=== PATIENT | female | born 1955 | race Hispanic/Latino ===

== ENCOUNTER 2017-03-21 22:34 | Observation (INO) | payer BC ==
--- NOTE | 2017-03-21 23:01 | RAD ---
EXAM: ONE VIEW CHEST 03/21/17 HISTORY: Chest pain. COMPARISON: None. FINDINGS: Portable upright chest: Normal cardiac silhouette. Fullness in the right paratracheal region and right suprahilar region. Cos tophrenic angles are clear. No consolidation. No pleural effusion or pneumothorax. IMPRESSION: Fullness in the right paratracheal and right suprahilar region which may in part be due to patient ro tation. Two view chest radiograph is recommended. POS: [facility]
[2017-03-21 23:02] LABS: #Basophils 0.1 thou/uL (0.0-0.2); #Eosinphils 0.3 thou/uL (0.0-0.7); #Lymphocytes 3.4 thou/uL (1.20-3.40); #Monocytes 0.7 thou/uL (0.11-0.59); %Basophils 0.9 % (0.0-1.0); %Eosinophils 2.7 % (0.0-10.0); %Lymphocytes 35.8 % (21.0-51.0); %Monocytes 7.5 % (0.0-10.0); Hemoglobin 14.3 g/dL (12.0-16.0); Mean Corpuscular HGB CONC 33.1 g/dL (32.0-36.0); Mean Corpuscular Hemoglobin 30.4 pg (27.0-31.0); Mean Corpuscular Volume 91.9 fl (81.0-99.0); Mean Platelet Volume 6.3 fL (7.4-10.4); Platelet Count 308 thou/uL (130-400); RBC Distribution Width 12.2 % (11.5-14.5); White Blood Cell (WBC) Count 9.5 thou/uL (4.8-10.8)
[2017-03-21 23:08] LABS: Prothrombin Time 13.1 SEC (12.0-14.7)
[2017-03-21 23:09] LABS: PTT 29.6 SEC (22.9-36.1)
[2017-03-21 23:23] LABS: ALT (SGPT) 21 U/L (8-55); AST (SGOT) 22 U/L (5-34); Albumin 5.2 g/dL (3.5-5.0); Alkaline Phosphatase 71 U/L (40-150); Anion Gap 15 mmol/L (10-20); BUN (Urea Nitrogen) 15 mg/dL (9.8-20.1); Bilirubin, Total 0.4 mg/dL (0.2-1.2); Calc. Creatinine Clearance 0 mL/min (70-130); Calcium 10.1 mg/dL (7.8-10.44); Carbon Dioxide 27 mmol/L (22-29); Chloride 102 mmol/L (98-107); Estimated GFR-MDRD 70; Globulin 3.2 g/dL (2.4-3.5); Glucose 85 mg/dL (70-105); Potassium 3.5 mmol/L (3.5-5.1); Protein, Total 8.4 g/dL (6.0-8.3); Sodium 140 mmol/L (136-145)
[2017-03-21 23:26] LABS: CKMB 4.1 ng/mL (0-6.6); Troponin I Less than 0.010 ng/mL (< 0.028)
[2017-03-22] MEDS ORDERED: Nitroglycerin 2% Ointment 1 INCH/1 GM Packet ONE ×2 (00:03→00:05)
[2017-03-22] MEDS ORDERED: Fentanyl 100 MCG/2 ML VIAL ONE (00:03)
--- NOTE | 2017-03-22 00:23 | RAD ---
ONE VIEW CHEST 03/21/17 HISTORY: Abnormal right sided cardiomediastinal. FINDINGS/IMPRESSION: On the lateral projection, there may be some fullness in the right suprahilar region. Better interrog ation with a chest CT is recommended. POS: [facility]
[2017-03-22] MEDS ORDERED: Ondansetron HCl/PF 4 MG/2 ML Vial ONE (00:45)
[2017-03-22 02:40] LABS: Troponin I Less than 0.010 ng/mL (< 0.028)
[2017-03-22 03:04] VITALS: BMI 23.9
[2017-03-22 05:53] LABS: Troponin I Less than 0.010 ng/mL (< 0.028)
--- NOTE | 2017-03-22 07:47 | CT ---
PRELIMINARY REPORT/[facility]/EMERGENCY AFTER HOURS PROCEDURE: EXAM: CT Angiography Chest With Intravenous Contrast CLINICAL HISTORY: 61 years old, female; Pain; Chest pain; Patient HX: F61 presents to ed C/O cp onset at rest. Pt denie s cardiac HX, states she had a mini stroke a few years ago. Pt had a stress test then with good repor t. Pt takes 81 mg asa daily. Denies recent strenuous activity, denies edema, denies diaphoresis, abel es abd pain, denies n/v. TECHNIQUE: Axial computed tomographic angiography images of the chest with intravenous contrast using pulmonary embolism protocol. MIP reconstructed images were created and reviewed. Oblique reformatted images were created and reviewed. COMPARISON: No relevant prior studies available. FINDINGS: Pulmonary arteries: No pulmonary embolism. Aorta: Unremarkable. Lungs: A 4 mm right upper lung nodule image 55 series 2. Minimal bibasilar dependent atelectasis. Pleural space: No significant effusion. No pneumothorax. Heart: Unremarkable. Mediastinum: Small hiatal hernia. Bones/joints: No acute fracture. No dislocation. Soft tissues: Unremarkable. Lymph nodes: No enlarged lymph nodes. Liver: Multiple hypodensities in the liver of varying sizes, the largest measuring approximately 2.1 x 1.9 cm. IMPRESSION: 1. No acute findings. 2. Multiple hypodensities in the liver of varying sizes and a 4 mm right upper lung nodule. Follow-up or further evaluation for these findings at local radiologist's discretion. Thank you for allowing us to participate in the care of your patient. Dictated and Authenticated by: Miguel Spring MD 03/22/2017 1:42 AM Central Time ([place] & [place]) FINAL REPORT CT ANGIO CHEST WITH CONTRAST: Date: 03/22/17 HISTORY: Chest pain, chest radiograph abnormality. COMPARISON: Chest radiograph from prior day. TECHNIQUE: CT angiogram of chest performed after the intravenous administration of contrast. 3D rendering is pro vided. FINDINGS: Aortic size is normal. No proximal segmental pulmonary arterial filling defect. 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 Multiple cysts of the liver. No consolidations or effusion. IMPRESSION: 1. Corresponding to the radiographic findings is a dilated azygos vein, which can be seen with seque lae of azygos continuation of the IVC. 2. 4.0 mm right upper lobe nodule. In a high risk patient, optional CT of chest in 12 months is vini mmended. POS: [facility]
[2017-03-22] MEDS ORDERED: Nitroglycerin 0.4 MG TAB (25 Tab Bottle) PO PRN (08:02)
[2017-03-22] MEDS ORDERED: Non-Formulary Item 1 EACH (Amlodipine Besylate [Amlodipine Besylate] 2.5 MG) PO SCH (09:00)
[2017-03-22] MEDS ORDERED: Non-Formulary Item 1 EACH (Ferrous Sulfate [Iron] 325 MG) PO SCH (09:00)
[2017-03-22] MEDS ORDERED: ISOVUE-370 76%-LOCM 1 ML ONE (14:26)
[2017-03-22] MEDS: Ferrous Sulfate 325 MG TAB PO SCH ×2 (16:42→21:24)
[2017-03-22] MEDS: Amlodipine 5 MG TAB PO SCH (16:42)
[2017-03-22] MEDS: Aspirin 81 mg Enteric Coated Tablet PO SCH (16:42)
[2017-03-22] MEDS: Lisinopril 5 MG TAB PO SCH (16:43)
--- NOTE | 2017-03-22 17:42 | CON ---
DATE OF ADMISSION: 03/22/2017 DATE OF CONSULTATION 03/22/2017 INDICATION FOR CONSULTATION: A 61-year-old female with chest pain. HISTORY OF PRESENT ILLNESS: This is a very pleasant 61-year-old female having complaints of substern al, dull chest discomfort which started around 9:30 last night. She has also occasionally been tight . She also complains of shortness of breath. She has undergone stress testing about 3-4 years ago a nd was found to have no evidence of underlying ischemia. She apparently says she also had mini strok e in the past. She had an EKG which showed normal sinus rhythm with T-wave inversions in V1 through V3. Also, she has these nonspecific changes. She also had Q-wave in lead 3; however, this is indete rminate for a myocardial infarction with small Q-wave in AVF. Her enzymes are unremarkable. They ar e negative. She still has some pain which she says comes and goes, but I do not see any EKG changes associated with that. She did have a CT scan earlier to rule out probably pulmonary emboli and was f ound to have a 4.0 mm nodule in the chest area, which was questionable for possible mass; it is a 4.0 mm right upper lobe nodule. A repeat CT scan was recommended in 12 months. Otherwise, there were n o significant abnormalities noted that would indicate any cardiac abnormalities. She was seen in the past for chest discomfort also by Dr. Barr and stress testing performed, but that was unremarkable . This was back in, I believe, 2014. PAST MEDICAL HISTORY: Significant for left femur fracture. She has had what she says small CVAs in the past. Many stroke. She had a cholecystectomy, hysterectomy, left femur fracture. She has compl ained of anxiety. SOCIAL HISTORY: She is . She has 1 child with no heart disease. She has no alcohol or toba insurance account specialist abuse. 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 FAMILY HISTORY: Unremarkable for any early heart disease. ALLERGIES: She is allergic to CODEINE and TRAMADOL. MEDICATIONS: Prior to admission, consisted of Claritin, vitamins, lisinopril, aspirin, iron tablets, vitamin C and Norvasc. In the emergency room, she was given nitroglycerin and fentanyl. REVIEW OF SYSTEMS: Twelve point review of systems unremarkable. As noted in history of present illn ess, she also wears glasses. PHYSICAL EXAMINATION: GENERAL: Reveals a well-developed, well-nourished female. VITAL SIGNS: Blood pressure 123/65, heart rate 60s and regular, respiratory rate is 16. HEENT: Reveals the head to be normocephalic, atraumatic. Carotid pulses are present. No bruits, no JVD. Thyroid is not enlarged. Oral mucosa is pink and moist. CHEST: Clear to auscultation, no rales, rhonchi or wheezing noted. CARDIOVASCULAR: Exam reveals a regular rate and rhythm. She has normal S1, S2. There was no S3, S4 . There were no significant murmurs, heaves, thrills, bruits or rubs noted. ABDOMEN: Soft and nontender with positive bowel sounds. No organomegaly or masses were noted. Femo ral pulses are present. Pedal pulses are present. There is no evidence of lower extremity edema. NEUROLOGIC: She appears to be fully intact with normal strength and normal tone. SKIN: Warm and dry. LABORATORY DATA: EKG shows normal sinus rhythm with nonspecific ST segment changes noted above with Q-wave in lead 3 and a small Q wave in lead AVF, which has not necessarily indicated myocardial infar ction. There was no evidence of this on previous EKGs; however, there was no evidence of myocardial infarction on previous EKGs, but there was mentioned previously of ST segment changes similar to what she has at this time, but they did not mention whether or not she had a Q-wave or not and I do not h ave old EKGs available. IMPRESSION: 1. Chest pain. Given her age and repeated episodes of chest discomfort at this time, I would sugges t she undergo repeat stress testing. If this is unremarkable, then the patient can be discharged skylar e after this, the second portion of the stress test is done. 2. History of small nodules, this need to be followed up as an outpatient. 3. Hypertension, which is under good control at this time. 4. Hypercholesterolemia. She should be placed on statin medications if she is able to afford or she will take these medications. She was not taking any cholesterol lowering medications previously. T here was no cholesterol performed on this admission. We will be more than happy to follow her with y ou, but we will plan for stress testing tomorrow. If this is abnormal, then she may need to undergo cardiac catheterization.
--- NOTE | 2017-03-22 21:13 | HP ---
PRIMARY CARE PHYSICIAN: Pardeep Arredondo M.D. CHIEF COMPLAINT: Chest pain. HISTORY OF PRESENT ILLNESS: A 61-year-old female with a past medical history of hypertension and hyp erlipidemia, who presented to the emergency room after she developed intermittent chest pain last nig ht while watching television. She describes it as substernal pressure, did not radiate and associate d with shortness of breath. It is not associated with nausea or vomiting. She reports she had a str ess test done about 4 years ago, which was negative. She denies cough, lower extremity edema, diapho resis, abdominal pain. She has no urinary symptoms. On presentation at the emergency room, vital si gns were stable. EKG showed no signs of acute ischemia. Chest x-ray was largely unrevealing and so she had a CT angio to rule out pulmonary embolism. CT showed a pulmonary nodule with recommendation to follow up with repeat imaging in 12 months. PAST MEDICAL HISTORY: Hypertension, hyperlipidemia. PAST SURGICAL HISTORY: Hysterectomy, cholecystectomy, left hip surgery. ALLERGIES: None. FAMILY AND SOCIAL HISTORY: Denies smoking cigarettes, drinking alcohol or using illicit drugs. REVIEW OF SYSTEMS: Constitutional: Denies fevers or chills. HEENT: Denies headaches, congestion. Cardiovascular: Per HPI. Respiratory: Positive for shortness of breath. Denies cough, sputum pro duction. GI: Negative. Musculoskeletal: Negative. Skin: Denies rashes or lesions. Neurologic: Denies dizziness, loss of consciousness. Endocrine: Negative. Hematology: Denies easy bruising o r bleeding disorder. Psychiatric: Denies suicidal or homicidal ideations, depressed mood. All othe r systems reviewed and were negative. PHYSICAL EXAMINATION: CONSTITUTIONAL: Vital signs reviewed and stable. GENERAL: Not in acute distress. HEENT: Normocephalic, atraumatic. PERRLA, EOMI. NECK: Supple. Anicteric. Mucous membranes are moist. RESPIRATORY: Vesicular to auscultation bilaterally. No wheezes or rales. CHEST: Nontender. CARDIOVASCULAR: S1, S2 only. No murmurs, rubs or gallops. ABDOMEN: Bowel sounds positive, nontender, nondistended, no organomegaly. MUSCULOSKELETAL: Moves all extremities spontaneously. NEUROLOGIC: Alert and well oriented. No focal deficits. SKIN: No rash or lesions appreciated. LABORATORY DATA: Troponin trended and remained negative. Chest x-ray and a CTA chest, as well as EK G as above. ASSESSMENT AND PLAN: 1. Chest pain, currently chest pain free. A major concern was from possible acute coronary syndrome , but the patient has no family history and workup has been negative. We will admit to tele, give barnhart blingual nitroglycerin p.r.n. for pain as well as IV morphine, daily aspirin. Cardiology to review. 2. Hyperlipidemia. We will continue on home regimen. CODE STATUS: FULL RESUSCITATION.
[2017-03-22] MEDS ORDERED: Atorvastatin Calcium 20 MG TAB PO SCH (21:15)
[2017-03-23 05:00] LABS: #Eosinphils 0.2 thou/uL (0.0-0.7); #Lymphocytes 2.6 thou/uL (1.20-3.40); #Monocytes 0.5 thou/uL (0.11-0.59); %Basophils 0.8 % (0.0-1.0); %Eosinophils 3.5 % (0.0-10.0); %Lymphocytes 40.8 % (21.0-51.0); Hemoglobin 13.1 g/dL (12.0-16.0); Mean Corpuscular HGB CONC 34.2 g/dL (32.0-36.0); Mean Corpuscular Hemoglobin 31.6 pg (27.0-31.0); Mean Corpuscular Volume 92.6 fl (81.0-99.0); Mean Platelet Volume 6.3 fL (7.4-10.4); Platelet Count 261 thou/uL (130-400); RBC Distribution Width 12.2 % (11.5-14.5); Red Blood Cell (RBC) Count 4.14 mill/uL (4.20-5.40); White Blood Cell (WBC) Count 6.3 thou/uL (4.8-10.8)
[2017-03-23 05:24] LABS: Anion Gap 12 mmol/L (10-20); BUN (Urea Nitrogen) 18 mg/dL (9.8-20.1); Calc. Creatinine Clearance 71 mL/min (70-130); Calcium 9.1 mg/dL (7.8-10.44); Carbon Dioxide 27 mmol/L (22-29); Chloride 104 mmol/L (98-107); Estimated GFR-MDRD 78; Glucose 94 mg/dL (70-105); Potassium 3.7 mmol/L (3.5-5.1); Sodium 139 mmol/L (136-145)
[2017-03-23] MEDS: Amlodipine 5 MG TAB PO SCH ×2 (07:57→13:36)
[2017-03-23] MEDS: Ferrous Sulfate 325 MG TAB PO SCH ×2 (07:57→21:09)
[2017-03-23] MEDS: Lisinopril 5 MG TAB PO SCH ×2 (07:57→13:35)
[2017-03-23] MEDS: Aspirin 81 mg Enteric Coated Tablet PO SCH ×2 (07:57→13:37)
[2017-03-23 09:23] LABS: Cardiac Risk 2.6 (Less than 4.5)
[2017-03-23] MEDS ORDERED: ADENOSINE 60 MG/20 ML VIAL ONE (12:01)
--- NOTE | 2017-03-23 12:28 | NM ---
NUCLEAR MEDICINE CARDIAC STRESS TEST WITH EJECTION FRACTION: HISTORY: Chest pain. Dyslipidemia. COMPARISON: Stress test from 2014. TECHNIQUE: Stress and rest was performed after the intravenous administration of 33 and 27 mCi technetium-99m se stamibi. FINDINGS: There is no scar. There is low grade ischemic change of the anterior wall lateral ventricle from the mid portion to the apex. Normal wall motion. Normal ejection fraction. Ejection fraction calculated a t 81%. IMPRESSION: Low grade ischemia anterior wall lateral ventricle extending from the mid portion to the apex. POS: [facility]
--- NOTE | 2017-03-23 12:58 | PDOC.PN ---
- Subjective Encounter Start Date: 03/23/17 Encounter Start Time: 12:55 -: No new compplaints -: No acute events overnight/ - Objective MAR Reviewed: Yes Vital Signs & Weight: Vital Signs (12 hours) Temp Pulse Resp BP Pulse Ox 03/23/17 12:00 97.4 F L 62 18 127/70 98 03/23/17 08:00 98.1 F 55 L 16 118/56 L 95 03/23/17 07:57 58 L 03/23/17 04:00 97.6 F 58 L 16 118/57 L 96 I&O: 03/22/17 03/23/17 03/24/17 06:59 06:59 06:59 Intake Total 590 Balance 590 Result Diagrams: 03/23/17 04:33 03/23/17 04:33 Radiology Reviewed by me: Yes Phys Exam - Physical Examination Constitutional: NAD HEENT: PERRLA, moist MMs, sclera anicteric Neck: supple, full ROM Respiratory: no wheezing, no rales, no rhonchi, clear to auscultation bilateral Cardiovascular: RRR, no significant murmur, no rub Gastrointestinal: soft, non-tender, no distention, positive bowel sounds Musculoskeletal: no edema, pulses present Neurological: non-focal, moves all 4 limbs Psychiatric: normal affect, A&O x 3 Skin: no rash, normal turgor Dx/Plan (1) Chest pain, rule out acute myocardial infarction Code(s): R07.9 - CHEST PAIN, UNSPECIFIED Status: Acute Comment: Stress test revealed ischemic wall change in the anterior wall lateral ventricle. Remains chest pain free Continue ASA and Statins F/u with cardiology re LHC (2) HTN (hypertension) Code(s): I10 - ESSENTIAL (PRIMARY) HYPERTENSION Status: Acute Qualifiers: Hypertension type: essential hypertension Qualified Code(s): I10 - Essential (primary) hypertension Comment: Continue home regimen. Fair control. (3) HLD (hyperlipidemia) Code(s): E78.5 - HYPERLIPIDEMIA, UNSPECIFIED Status: Acute Qualifiers: Hyperlipidemia type: pure hypercholesterolemia Qualified Code(s): E78.00 - Pure hypercholesterolemia, unspecified; E78.0 - Pure hypercholesterolemia Comment: Lipid profile done Continue Statins - Plan cont current plan of care f/u with cardiology. Possibly will need a LHC * .
[2017-03-23] MEDS ORDERED: Communication Order-Pharmacy FS SCH (17:30)
[2017-03-23] MEDS ORDERED: Atorvastatin Calcium 20 MG TAB PO SCH (21:00)
[2017-03-23] MEDS ORDERED: diphenhydrAMINE 25 MG CAP PO PRN (23:05)
[2017-03-24] MEDS: Lisinopril 5 MG TAB PO SCH (03:46)
[2017-03-24] MEDS: Ferrous Sulfate 325 MG TAB PO SCH (03:47)
[2017-03-24] MEDS: Amlodipine 5 MG TAB PO SCH (03:47)
[2017-03-24] MEDS: Aspirin 81 mg Enteric Coated Tablet PO SCH (03:47)
[2017-03-24 05:15] LABS: #Basophils 0.1 thou/uL (0.0-0.2); #Eosinphils 0.3 thou/uL (0.0-0.7); #Lymphocytes 2.8 thou/uL (1.20-3.40); #Monocytes 0.6 thou/uL (0.11-0.59); #Neutrophils 4.1 thou/uL (1.40-6.50); %Basophils 0.8 % (0.0-1.0); %Eosinophils 3.4 % (0.0-10.0); %Monocytes 7.6 % (0.0-10.0); %Neutrophils 52.3 % (42.0-75.0); Hemoglobin 13.2 g/dL (12.0-16.0); Mean Corpuscular HGB CONC 34.2 g/dL (32.0-36.0); Mean Corpuscular Hemoglobin 31.6 pg (27.0-31.0); Mean Corpuscular Volume 92.3 fl (81.0-99.0); Mean Platelet Volume 6.3 fL (7.4-10.4); Platelet Count 274 thou/uL (130-400); RBC Distribution Width 12.2 % (11.5-14.5); Red Blood Cell (RBC) Count 4.18 mill/uL (4.20-5.40); White Blood Cell (WBC) Count 7.8 thou/uL (4.8-10.8)
[2017-03-24 05:22] LABS: Anion Gap 12 mmol/L (10-20); BUN (Urea Nitrogen) 15 mg/dL (9.8-20.1); Calc. Creatinine Clearance 73 mL/min (70-130); Calcium 9.1 mg/dL (7.8-10.44); Carbon Dioxide 27 mmol/L (22-29); Chloride 104 mmol/L (98-107); Estimated GFR-MDRD 80; Glucose 101 mg/dL (70-105); Potassium 3.7 mmol/L (3.5-5.1); Sodium 139 mmol/L (136-145)
[2017-03-24] MEDS ORDERED: Iopamidol 370 76% 100 ML VIAL ONE (11:53)
[2017-03-24] MEDS ORDERED: Fentanyl 100 MCG/2 ML VIAL ONE (12:00)
[2017-03-24] MEDS ORDERED: Midazolam HCl 2 mg/2 ml Vial ONE (12:00)
[2017-03-24] MEDS ORDERED: Sodium Chloride 0.9% 200 ML IV SCH (12:15)
[2017-03-24] MEDS ORDERED: traMADol HCl 50 MG TAB PO PRN (12:15)
--- NOTE | 2017-03-24 12:20 | PDOC.CTH ---
Cardiology Progress Note - Subjective She had her [facility] and it was normal. - Objective Vital Signs Temp Pulse Resp BP BP Pulse Ox 03/24/17 08:10 98.2 F 63 16 121/64 93 L 03/24/17 03:47 59 L 116/58 L 03/24/17 03:46 59 L 116/28 L 03/24/17 03:45 97.8 F 59 L 20 116/58 L 94 L Weight 128 lb 4.8 oz 03/23/17 03/24/17 03/25/17 06:59 06:59 06:59 Intake Total 590 1320 Balance 590 1320 - Physical Examination General/Neuro: alert & oriented x3, NAD Lungs: unlabored respirations Heart: RRR Abdomen: NT/ND Extremities: other: (no edema) - Telemetry Telemetry Rhythm: NSR - Labs Result Diagrams: 03/24/17 04:44 03/24/17 04:44 Troponin/CKMB CK-MB (CK-2) 4.1 ng/mL (0-6.6) 03/21/17 22:55 Troponin I Less than 0.010 ng/mL (< 0.028) 03/22/17 04:54 - Assessment/Plan 1. Normal coronaries 2. Chest pain, non cardiac PLAN: - May d/c home later today. - Follow up with me in 4 weeks. - Will sign off. Please call with any questions.
[2017-03-24] MEDS ORDERED: Sodium Chloride 0.9% 1,000 ML IV SCH (12:30)
--- NOTE | 2017-03-24 14:33 | DIS ---
DATE OF ADMISSION: 03/22/2017 DATE OF DISCHARGE: 03/24/2017 CONDITION AT DISCHARGE: Stable and improved. PRIMARY DIAGNOSIS: Chest pain. SECONDARY DIAGNOSES: 1. Hypertension. 2. Hyperlipidemia. DISCHARGE MEDICATIONS: Amlodipine 2.5 mg p.o. daily, ascorbic acid 500 mg p.o. daily, aspirin 81 mg p.o. daily, atorvastatin 20 mg p.o. daily, ferrous sulfate 325 mg p.o. b.i.d., lisinopril 5 mg p.o. d aily, loratadine/pseudoephedrine 1 each p.o. daily, multivitamins 1 tablet p.o. daily. HISTORY OF PRESENT ILLNESS: A 61-year-old female with past medical history of hypertension and hyper lipidemia who presented to the Emergency Room for chest pain. She had intermittent chest pain the ni ght before while watching television, described as substernal pressure, did not radiate, but was asso ciated with shortness of breath. There was no nausea or vomiting. The patient reports a stress test done about 4 years ago, which was negative. She denied cough, lower extremity edema, diaphoresis or abdominal pain. She had no urinary symptoms. At the emergency room, her vital signs remained stabl e. EKG showed no signs of acute ischemia. She had a chest x-ray, which was also unrevealing; theref ore, she had a CT angio of her chest to rule out pulmonary embolism. This scan showed a pulmonary no dule with recommendation to follow up with repeat imaging in 12 months. HOSPITAL COURSE: She remained stable throughout her admission. Vital signs were within normal limit s. Troponins were trended and were negative. She had a stress test, which showed ischemic wall ryder ges in the anterior wall of the lateral ventricle. Cardiology was involved and she eventually underw ent cardiac catheterization, which showed normal coronaries. She was discharged on the medications s tated above and told to return to the emergency room if she develops repeat chest pain, shortness of breath or dizziness. PHYSICAL EXAMINATION: GENERAL: The patient was examined on the day of discharge. CONSTITUTIONAL: Not in acute distress. HEENT: PERRLA. Moist mucous membranes. Sclerae are anicteric. NECK: Supple, with full range of movement. RESPIRATORY: Clear to auscultation bilaterally with no wheezes, rales or rhonchi. CARDIOVASCULAR: Regular rate and rhythm with no murmurs, rubs or gallops. GASTROINTESTINAL: Soft, nontender, nondistended with positive bowel sounds. No organomegaly. MUSCULOSKELETAL: No edema. Pulses present. NEUROLOGIC: Nonfocal. Moves all limbs spontaneously. PSYCHIATRIC: Normal affect. Alert and oriented to time, place, and person. SKIN: No rash with normal turgor. Warm, dry, and well perfused. PROCEDURES: Exercise stress test, cardiac catheterization. CONSULTS: Cardiology. DIET: Heart healthy diet. ACTIVITY: To resume as tolerated. CARE GOALS: The patient is to follow up with her primary care physician within 1 week of discharge. Advised to return to the emergency room if she developed chest pain, shortness of breath or dizzines s. She is also advised to take her medications as prescribed. Discharged to home without incident. Total time of discharge including documentation and chart review, 65 minutes.
[2017-03-24 16:55] VITALS: BP 102/57; TEMP 98.4
--- NOTE | 2017-03-29 14:21 | EKG ---
Test Reason : CHEST PAIN Blood Pressure : / mmHG Vent. Rate : 066 BPM Atrial Rate : 066 BPM P-R Int : 136 ms QRS Dur : 072 ms QT Int : 400 ms P-R-T Axes : 043 038 051 degrees QTc Int : 419 ms Normal sinus rhythm Possible Inferior infarct , age undetermined Abnormal ECG Confirmed by JORDY LINK, EMILY ([id number]), photo editor TIM VALADEZ ([id number]) on 03/29/2017 2:21:18 PM Referred By: Confirmed By:EMILY SPENCE MD
== END 2017-03-24 18:02 | disposition home or self-care (01) ==
LOC: ERS 22:34 → 2SW 03-22 02:24
PROVIDERS: ADMIT Hospitalist; ATTEND Hospitalist
PROC: 4A023N7 Measurement of Cardiac Sampling and Pressure, Left Heart, Percutaneous Approach (ICD-10-PCS; principal; 2017-03-24)
PROC: B2111ZZ Fluoroscopy of Multiple Coronary Arteries using Low Osmolar Contrast (ICD-10-PCS; 2017-03-24)
PROC: B2151ZZ Fluoroscopy of Left Heart using Low Osmolar Contrast (ICD-10-PCS; 2017-03-24)
DX: R07.2 Precordial pain (principal); I10 Essential (primary) hypertension; E78.5 Hyperlipidemia, unspecified; Z88.5 Allergy status to narcotic agent; Z79.82 Long term (current) use of aspirin; Z79.899 Other long term (current) drug therapy; Z90.49 Acquired absence of other specified parts of digestive tract; Z90.710 Acquired absence of both cervix and uterus; Z98.890 Other specified postprocedural states
CPT/HCPCS: 36415; 71045; 71275; 78452; 80048; 80053; 80061; 82553; 84484; 85025; 85610; 85730; 93005; 93017; 93458; 94760; 96361; 96374; 96375; 99152; A9500; C1769; G0378; J0153; J1644; J2250; J2405; J3010